=== PATIENT | female | born 1985 | race Caucasian/White ===

== ENCOUNTER 2017-10-11 16:44 | Emergency (ER) | payer BC ==
[~2017-10-11] VITALS: Ht 162.6 cm; Wt 85.0 kg
[2017-10-11 16:55] VITALS: BP 133/95; PULSE 97; RESP 18; TEMP 98.8; O2SAT 97
[2017-10-11 17:35] LABS: AUTOMATED NEUTROPHIL # 4.2 TH/MM3 (1.8-7.7); BASOPHIL % 0.6 % (0.0-2.0); EOSINOPHIL # 0.1 TH/MM3 (0-0.4); EOSINOPHIL % 0.9 % (0.0-4.0); HEMATOCRIT 39.7 % (35.0-46.0); HEMOGLOBIN 13.5 GM/DL (11.6-15.3); LYMPH % 34.2 % (9.0-44.0); LYMPHOCYTE # 2.5 TH/MM3 (1.0-4.8); MEAN CELL VOLUME 78.7 FL (80.0-100.0); MEAN CORPUSCULAR HEMOGLOBIN 26.9 PG (27.0-34.0); MEAN CORPUSCULAR HGB CONC 34.1 % (32.0-36.0); MEAN PLATELET VOLUME 8.7 FL (7.0-11.0); MONOCYTE # 0.4 TH/MM3 (0-0.9); NEUT % 58.3 % (16.0-70.0); PLATELET COUNT 237 TH/MM3 (150-450); RED BLOOD COUNT 5.04 MIL/MM3 (4.00-5.30); RED CELL DISTRIBUTION WIDTH 13.3 % (11.6-17.2); WHITE BLOOD COUNT 7.2 TH/MM3 (4.0-11.0)
[2017-10-11 17:44] LABS: BILIRUBIN, URINE NEG (NEG); BLOOD, URINE NEG (NEG); GLUCOSE,URINE NEG (NEG); KETONE, URINE NEG (NEG); MUCUS URINE FEW /lpf (OCC); NITRITE,URINE NEG (NEG); SQUAMOUS EPITHELIAL CELL URINE 1 /hpf (0-5); URINE COLOR YELLOW (YELLW/STRAW); URINE LEUKOCYTE ESTERASE NEG (NEG)
[2017-10-11 17:56] LABS: ALBUMIN 4.7 GM/DL (3.4-5.0); ALT (GPT) 37 U/L (10-53); AST (GOT) 21 U/L (15-37); BICARBONATE 25.2 MEQ/L (21.0-32.0); BLOOD UREA NITROGEN 12 MG/DL (7-18); CALCIUM 9.8 MG/DL (8.5-10.1); CHLORIDE 106 MEQ/L (98-107); CREATININE 0.85 MG/DL (0.50-1.00); GLOMERULAR FILTRATION RATE 79 ML/MIN (>89); GLUCOSE,RANDOM 86 MG/DL (74-106); SODIUM (NA) 140 MEQ/L (136-145)
[2017-10-11 17:57] LABS: ALKALINE PHOSPHATASE 86 U/L (45-117); TOTAL BILIRUBIN ADULT 0.6 MG/DL (0.2-1.0); TOTAL PROTEIN 8.5 GM/DL (6.4-8.2)
[2017-10-11] MEDS ORDERED: SODIUM CHLOR 0.9% 1000 ML INJ 1,000 ML IV SCH (18:06)
[2017-10-11] MEDS ORDERED: ONDANSETRON HCL 4 MG/2 ML VIAL IVP ONE (18:15)
[2017-10-11] MEDS ORDERED: KETOROLAC TROMETHAMINE 30 MG/ML (IVP) VIAL IVP ONE (18:15)
[2017-10-11] MEDS ORDERED: SODIUM CHLORIDE 0.9% FLUSH 10 ML FLUSH IV FLUSH PRN (18:15)
--- NOTE | 2017-10-11 18:38 | PD ---
HPI Chief Complaint: Abdominal Pain Time Seen by Provider: 17:51 Travel History International Travel<30 days: No Contact w/Intl Traveler<30days: No Traveled to known affect area: No History of Present Illness HPI 31-year-old female presents to the emergency department with complaint of left lower quadrant abdominal pain 12 days that has been constant and associated diarrhea. Reports nausea without vomiting. Denies fevers. Denies dysuria, hematochezia. Denies abnormal vaginal discharge, odor. Denies recent travel or hospitalization. Says her diarrhea goes between being watery and soft. She was seen at urgent care and was sent here for concern of diverticulitis. She has history of endometriosis removal in 2015 and takes Lupron. Denies other abdominal surgical history. her last menstrual period was December 2016 secondary to Lupron, which stopped her menses. Rates pain 01/01. Has taken Tylenol with no relief of symptoms. Pain is worse with eating. No known relieving factors. Denies radiation of pain. Denies history of kidney stones. Has history of Jean syndrome, depression, ADHD. Says she went to [facility] and they gave her pain medication and said that she was just having cramps. Primary care provider is Dr. Cortez, resident MD here at [place]. No other medical complaints. No other modifying factors or associated signs and symptoms. PFSH Past Medical History ?: Not LMP: 12/2016 ON LUPRON Social History Tobacco Use: No Allergies-Medications (Allergen,Severity, Reaction): Coded Allergies: No Known Allergies (Unverified , 10/11/17) Reported Meds & Prescriptions Reported Meds & Active Scripts Active Reported Xanax (Alprazolam) 0.5 Mg Tab 0.5 Mg PO [depo-looperon] 11.25 Mg IM Lexapro (Escitalopram Oxalate) 10 Mg Tab 10 Mg PO DAILY Adderall (Amphetamine-Dextroamphetamine) 15 Mg Tab 15 Mg PO DAILY Avoid late evening doses. Space doses at least 4 to 6 hours if more than once/day dosing. Review of Systems Except as stated in HPI: all other systems reviewed are Neg Physical Exam Narrative GENERAL: Well-nourished, well-developed female patient, in no acute distress; afebrile; nontoxic-appearing SKIN: Warm and dry. HEAD: Atraumatic. Normocephalic. EYES: Pupils equal and round. No scleral icterus. No injection or drainage. ENT: Mucosa pink and moist. Airway patent. NECK: Trachea midline. CARDIOVASCULAR: Regular rate and rhythm. No murmur appreciated. RESPIRATORY: No accessory muscle use. Clear to auscultation. Breath sounds equal bilaterally. GASTROINTESTINAL: Abdomen soft, tenderness on palpation to left lower quadrant, nondistended. Hepatic and splenic margins not palpable. Bowel sounds are active 4 quadrants. Nonrigid. No guarding. BACK: No CVA tenderness. MUSCULOSKELETAL: No obvious deformities. No clubbing. No cyanosis. No edema. NEUROLOGICAL: Awake and alert. Oriented 3. No obvious cranial nerve deficits. Motor grossly within normal limits. Normal speech. PSYCHIATRIC: Appropriate mood and affect; insight and judgment normal. Data Data Last Documented VS Vital Signs Date Time Temp Pulse Resp B/P (MAP) Pulse Ox O2 Delivery O2 Flow Rate FiO2 10/11/17 18:39 18 10/11/17 16:55 98.8 97 133/95 (108) 97 Orders Orders Complete Blood Count With Diff (10/11/17 16:58) Comprehensive Metabolic Panel (10/11/17 16:58) Urinalysis - C+S If Indicated (10/11/17 16:58) Iv Access Insert/Monitor (10/11/17 16:58) Lipase (10/11/17 16:58) Ct Abd/Pel W Iv Contrast(Rout) (10/11/17 18:06) Ondansetron Inj (Zofran Inj) (10/11/17 18:15) Sodium Chlor 0.9% 1000 Ml Inj (Ns 1000 M (10/11/17 18:06) Sodium Chloride 0.9% Flush (Ns Flush) (10/11/17 18:15) Ketorolac Inj (Toradol Inj) (10/11/17 18:15) Labs Laboratory Tests Test 10/11/17 17:13 10/11/17 17:17 Urine Color YELLOW Urine Turbidity HAZY Urine pH 6.0 Urine Specific [place] 1.021 Urine Protein TRACE mg/dL Urine Glucose (UA) NEG mg/dL Urine Ketones NEG mg/dL Urine Occult Blood NEG Urine Nitrite NEG Urine Bilirubin NEG Urine Urobilinogen 2.0 MG/DL Urine Leukocyte Esterase NEG Urine WBC 1 /hpf Urine Squamous Epithelial Cells 1 /hpf Urine Granular Casts 2 /lpf Urine Mucus FEW /lpf Microscopic Urinalysis Comment CULT NOT INDICATED White Blood Count 7.2 TH/MM3 Red Blood Count 5.04 MIL/MM3 Hemoglobin 13.5 GM/DL Hematocrit 39.7 % Mean Corpuscular Volume 78.7 FL Mean Corpuscular Hemoglobin 26.9 PG Mean Corpuscular Hemoglobin Concent 34.1 % Red Cell Distribution Width 13.3 % Platelet Count 237 TH/MM3 Mean Platelet Volume 8.7 FL Neutrophils (%) (Auto) 58.3 % Lymphocytes (%) (Auto) 34.2 % Monocytes (%) (Auto) 6.0 % Eosinophils (%) (Auto) 0.9 % Basophils (%) (Auto) 0.6 % Neutrophils # (Auto) 4.2 TH/MM3 Lymphocytes # (Auto) 2.5 TH/MM3 Monocytes # (Auto) 0.4 TH/MM3 Eosinophils # (Auto) 0.1 TH/MM3 Basophils # (Auto) 0.0 TH/MM3 CBC Comment DIFF FINAL Differential Comment Blood Urea Nitrogen 12 MG/DL Creatinine 0.85 MG/DL Random Glucose 86 MG/DL Total Protein 8.5 GM/DL Albumin 4.7 GM/DL Calcium Level 9.8 MG/DL Alkaline Phosphatase 86 U/L Aspartate Amino Transf (AST/SGOT) 21 U/L Alanine Aminotransferase (ALT/SGPT) 37 U/L Total Bilirubin 0.6 MG/DL Sodium Level 140 MEQ/L Potassium Level 3.7 MEQ/L Chloride Level 106 MEQ/L Carbon Dioxide Level 25.2 MEQ/L Anion Gap 9 MEQ/L Estimat Glomerular Filtration Rate 79 ML/MIN Lipase 68 U/L [facility] Medical Decision Making Medical Screen Exam Complete: Yes Emergency Medical Condition: Yes Medical Record Reviewed: Yes Differential Diagnosis Diverticulitis, C. difficile, diarrhea Narrative Course 31-year-old female with left lower quadrant abdominal pain and diarrhea 12 days. Patient is afebrile nontoxic pain. Denies fever, vomiting. CBC, CMP, lipase, urinalysis, UPT, CT abdomen/pelvis, IV, IV fluids, Toradol, Zofran ordered. 0: CBC, CMP unremarkable. Lipase 68. Urinalysis without signs of infection. 1899: Report given to Magdaleno Rowe PA-C at change of shift. See his note for final patient disposition. Rachael Oro Oct 11, 2017 18:38
[2017-10-11] MEDS ORDERED: LEXA10TA PO (18:39)
[2017-10-11] MEDS ORDERED: ADDE15TA PO (18:39)
[2017-10-11] MEDS ORDERED: [UNRECOGNIZED DRUG - OTHER] IM (18:39)
[2017-10-11] MEDS ORDERED: ALPR.5 PO (18:46)
[2017-10-11 19:06] VITALS: BP 119/84; PULSE 74; RESP 15; O2SAT 97
--- NOTE | 2017-10-11 19:07 | PD ---
Data Data Last Documented VS Vital Signs Date Time Temp Pulse Resp B/P (MAP) Pulse Ox O2 Delivery O2 Flow Rate FiO2 10/11/17 19:06 74 15 119/84 (96) 97 Room Air 10/11/17 16:55 98.8 Orders Orders Complete Blood Count With Diff (10/11/17 16:58) Comprehensive Metabolic Panel (10/11/17 16:58) Urinalysis - C+S If Indicated (10/11/17 16:58) Iv Access Insert/Monitor (10/11/17 16:58) Lipase (10/11/17 16:58) Ct Abd/Pel W Iv Contrast(Rout) (10/11/17 18:06) Ondansetron Inj (Zofran Inj) (10/11/17 18:15) Sodium Chlor 0.9% 1000 Ml Inj (Ns 1000 M (10/11/17 18:06) Sodium Chloride 0.9% Flush (Ns Flush) (10/11/17 18:15) Ketorolac Inj (Toradol Inj) (10/11/17 18:15) Ed Urine Pregnancytest Poc (10/11/17 19:44) Iohexol 350 Inj (Omnipaque 350 Inj) (10/11/17 20:03) Labs Laboratory Tests Test 10/11/17 17:13 10/11/17 17:17 Urine Color YELLOW Urine Turbidity HAZY Urine pH 6.0 Urine Specific [place] 1.021 Urine Protein TRACE mg/dL Urine Glucose (UA) NEG mg/dL Urine Ketones NEG mg/dL Urine Occult Blood NEG Urine Nitrite NEG Urine Bilirubin NEG Urine Urobilinogen 2.0 MG/DL Urine Leukocyte Esterase NEG Urine WBC 1 /hpf Urine Squamous Epithelial Cells 1 /hpf Urine Granular Casts 2 /lpf Urine Mucus FEW /lpf Microscopic Urinalysis Comment CULT NOT INDICATED White Blood Count 7.2 TH/MM3 Red Blood Count 5.04 MIL/MM3 Hemoglobin 13.5 GM/DL Hematocrit 39.7 % Mean Corpuscular Volume 78.7 FL Mean Corpuscular Hemoglobin 26.9 PG Mean Corpuscular Hemoglobin Concent 34.1 % Red Cell Distribution Width 13.3 % Platelet Count 237 TH/MM3 Mean Platelet Volume 8.7 FL Neutrophils (%) (Auto) 58.3 % Lymphocytes (%) (Auto) 34.2 % Monocytes (%) (Auto) 6.0 % Eosinophils (%) (Auto) 0.9 % Basophils (%) (Auto) 0.6 % Neutrophils # (Auto) 4.2 TH/MM3 Lymphocytes # (Auto) 2.5 TH/MM3 Monocytes # (Auto) 0.4 TH/MM3 Eosinophils # (Auto) 0.1 TH/MM3 Basophils # (Auto) 0.0 TH/MM3 CBC Comment DIFF FINAL Differential Comment Blood Urea Nitrogen 12 MG/DL Creatinine 0.85 MG/DL Random Glucose 86 MG/DL Total Protein 8.5 GM/DL Albumin 4.7 GM/DL Calcium Level 9.8 MG/DL Alkaline Phosphatase 86 U/L Aspartate Amino Transf (AST/SGOT) 21 U/L Alanine Aminotransferase (ALT/SGPT) 37 U/L Total Bilirubin 0.6 MG/DL Sodium Level 140 MEQ/L Potassium Level 3.7 MEQ/L Chloride Level 106 MEQ/L Carbon Dioxide Level 25.2 MEQ/L Anion Gap 9 MEQ/L Estimat Glomerular Filtration Rate 79 ML/MIN Lipase 68 U/L [facility] Medical Record Reviewed: Yes Supervised Visit with BENNETT: Yes Narrative Course CBC & BMP Diagram 10/11/17 17:17 Total Protein 8.5 H, Albumin 4.7, Calcium Level 9.8, Alkaline Phosphatase 86, Aspartate Amino Transf (AST/SGOT) 21, Alanine Aminotransferase (ALT/SGPT) 37, Total Bilirubin 0.6 Lipase is normal Urinalysis is normal Urine is negative Diagnosis Primary Impression: Nausea Additional Impressions: Diarrhea Qualified Codes: R19.7 - Diarrhea, unspecified Abdominal pain Qualified Codes: R10.9 - Unspecified abdominal pain Referrals: Primary Care Physician call for appointment Med/Other Pt SpecificInfo: Prescription(s) given Scripts Ondansetron Odt (Zofran Odt) 4 Mg Tab 4 MG SL Q8HR Y for Nausea/Vomiting, #10 TAB 0 Refills Prov: Jonathan Holland MD 10/11/17 Disposition: 01 DISCHARGE HOME Condition: Stable Jonathan Holland MD Oct 11, 2017 19:07
[2017-10-11] MEDS ORDERED: IOHEXOL 350 MG/ML 10 ML VIAL (for RAD DIAG) IVCONTRAST ONE (20:03)
--- NOTE | 2017-10-11 20:17 | RADRPT ---
EXAM DATE/TIME: 10/11/2017 19:59 [facility] COMPARISON: No previous studies available for comparison. INDICATIONS : Left lower quadrant abdomen pain with diarrhea. IV CONTRAST: 100 cc Omnipaque 350 (iohexol) IV ORAL CONTRAST: No oral contrast ingested. RADIATION DOSE: 12.79 CTDIvol (mGy) MEDICAL HISTORY : Diverticulitis. SURGICAL HISTORY : None. ENCOUNTER: Initial ACUITY: 2 weeks PAIN SCALE: 6/10 LOCATION: Left lower quadrant abdomen TECHNIQUE: Volumetric scanning of the abdomen and pelvis was performed. Using automated exposure control and ad justment of the mA and/or kV according to patient size, radiation dose was kept as low as reasonably achievable to obtain optimal diagnostic quality images. DICOM format image data is available electro nically for review and comparison. FINDINGS: LOWER LUNGS: The visualized lower lungs are clear. LIVER: Homogeneous density without lesion. There is no dilation of the biliary tree. No calcified gallston es. SPLEEN: Normal size without lesion. PANCREAS: Within normal limits. KIDNEYS: Normal in size and shape. There is no mass, stone or hydronephrosis. ADRENAL GLANDS: Within normal limits. VASCULAR: There is no aortic aneurysm. BOWEL/MESENTERY: The stomach, small bowel, and colon demonstrate no acute abnormality. There is no free intraperitone al air or fluid. ABDOMINAL WALL: Within normal limits. RETROPERITONEUM: There is no lymphadenopathy. BLADDER: No wall thickening or mass. REPRODUCTIVE: Within normal limits. INGUINAL: There is no lymphadenopathy or hernia. MUSCULOSKELETAL: Within normal limits for patient age. CONCLUSION: No acute CT findings in the abdomen or pelvis. Olivier Wallace MD on October 11, 2017 at 20:10 Board Certified Radiologist. This report was verified electronically.
[2017-10-11] MEDS ORDERED: ZOFR4TAB3 SL (20:32)
[2017-10-15] MEDS ORDERED: LUPR11.22 IM (10:50)
== END 2017-10-11 23:24 | disposition home or self-care (01) ==
LOC: NEPD 16:44
DX: R11.0 Nausea (principal); R19.7 Diarrhea, unspecified; R10.32 Left lower quadrant pain
CPT/HCPCS: 74177; 80053; 81001; 83690; 84703; 85025; 96374; 96375; 99284; J1885; J2405; J7030; Q9967

== ENCOUNTER 2017-10-22 16:43 | Emergency (ER) | payer BC ==
[~2017-10-22] VITALS: Ht 162.6 cm; Wt 82.3 kg
[~2017-10-22 16:43] MED LIST: ADDE15TA PO; ALPR.5 PO; LEXA10TA PO; LUPR11.22 IM; ZOFR4TAB3 SL
[2017-10-22 16:48] VITALS: BP 126/78; PULSE 83; RESP 18; TEMP 98.1; O2SAT 97
[2017-10-22 18:20] LABS: AMORPHOUS SEDIMENT, URINE RARE; BILIRUBIN, URINE NEG (NEG); BLOOD, URINE NEG (NEG); GLUCOSE,URINE NEG (NEG); KETONE, URINE 10 mg/dL (NEG); MUCUS URINE MANY /lpf (OCC); NITRITE,URINE NEG (NEG); SQUAMOUS EPITHELIAL CELL URINE 6 /hpf (0-5); URINE COLOR YELLOW (YELLW/STRAW); URINE LEUKOCYTE ESTERASE TRACE (NEG)
[2017-10-22 18:31] LABS: AUTOMATED NEUTROPHIL # 5.1 TH/MM3 (1.8-7.7); BASOPHIL # 0.1 TH/MM3 (0-0.2); BASOPHIL % 0.6 % (0.0-2.0); EOSINOPHIL # 0.1 TH/MM3 (0-0.4); EOSINOPHIL % 0.7 % (0.0-4.0); HEMATOCRIT 37.9 % (35.0-46.0); HEMOGLOBIN 13.3 GM/DL (11.6-15.3); LYMPH % 30.6 % (9.0-44.0); LYMPHOCYTE # 2.5 TH/MM3 (1.0-4.8); MEAN CELL VOLUME 78.3 FL (80.0-100.0); MEAN CORPUSCULAR HEMOGLOBIN 27.5 PG (27.0-34.0); MEAN CORPUSCULAR HGB CONC 35.1 % (32.0-36.0); MEAN PLATELET VOLUME 9.1 FL (7.0-11.0); MONO % 6.3 % (0.0-8.0); MONOCYTE # 0.5 TH/MM3 (0-0.9); NEUT % 61.8 % (16.0-70.0); PLATELET COUNT 265 TH/MM3 (150-450); RED BLOOD COUNT 4.84 MIL/MM3 (4.00-5.30); RED CELL DISTRIBUTION WIDTH 13.5 % (11.6-17.2); WHITE BLOOD COUNT 8.3 TH/MM3 (4.0-11.0)
[2017-10-22 18:39] LABS: ALBUMIN 4.7 GM/DL (3.4-5.0); ALT (GPT) 27 U/L (10-53); AST (GOT) 15 U/L (15-37); BICARBONATE 24.6 MEQ/L (21.0-32.0); BLOOD UREA NITROGEN 12 MG/DL (7-18); CALCIUM 9.5 MG/DL (8.5-10.1); CHLORIDE 107 MEQ/L (98-107); CREATININE 0.81 MG/DL (0.50-1.00); GLOMERULAR FILTRATION RATE 84 ML/MIN (>89); GLUCOSE,RANDOM 93 MG/DL (74-106); SODIUM (NA) 140 MEQ/L (136-145)
[2017-10-22 18:41] LABS: ALKALINE PHOSPHATASE 84 U/L (45-117); TOTAL BILIRUBIN ADULT 0.4 MG/DL (0.2-1.0); TOTAL PROTEIN 8.2 GM/DL (6.4-8.2)
[2017-10-22] MEDS ORDERED: DICYCLOMINE HCL 20 MG/2 ML VIAL IM ONE (19:30)
--- NOTE | 2017-10-22 19:31 | PD ---
HPI Chief Complaint: Abdominal Pain Time Seen by Provider: 19:19 Travel History International Travel<30 days: No Contact w/Intl Traveler<30days: No Traveled to known affect area: No History of Present Illness HPI 31-year-old female here for evaluation of abdominal pain, weight loss, near syncopal episode that occurred today. Patient reports that she was seen by her primary care physician at the [facility] today here at [place], and when she was leaving to get into her car she began to see spots and felt as though she was going to pass out. She states that her abdominal pain started on September 30 and has been on her left lower abdomen and radiates to her left flank. She had a laparoscopic procedure for endometriosis in the past, no other abdominal surgeries. Pain is described as sharp, constant, moderate, intermittently worse at times. She denies dysuria or urinary frequency. No vaginal bleeding or discharge. She is sexually active with one partner and believe she is in a monogamous relationship. She was seen in the emergency department on 10/11/17 with similar complaints and had a CT abdomen pelvis performed that showed no acute intra-abdominal pathology. [facility] Past Medical History ADHD: Yes Anxiety: Yes Reproductive: Yes (endometriosis) ?: Not Past Surgical History Tonsillectomy: Yes Other Surgery: Yes (endometriosis removal ) Social History Alcohol Use: Yes (rarely) Tobacco Use: No Substance Use: No Allergies-Medications (Allergen,Severity, Reaction): Coded Allergies: No Known Allergies (Unverified , 10/11/17) Reported Meds & Prescriptions Reported Meds & Active Scripts Active Zofran Odt (Ondansetron Odt) 4 Mg Tab 4 Mg SL Q8HR PRN Reported Lupron Depot Inj Kit (Leuprolide (3 Month) Inj Kit) 11.25 Mg Kit 11.25 Mg IM DIRECTED Xanax (Alprazolam) 0.5 Mg Tab 0.5 Mg PO Lexapro (Escitalopram Oxalate) 10 Mg Tab 10 Mg PO DAILY Adderall (Amphetamine-Dextroamphetamine) 15 Mg Tab 15 Mg PO DAILY Avoid late evening doses. Space doses at least 4 to 6 hours if more than once/day dosing. Review of Systems Except as stated in HPI: all other systems reviewed are Neg Physical Exam Narrative GENERAL: Well-developed, well-nourished, comfortable, no apparent distress. SKIN: Focused skin assessment warm/dry. No rash. HEAD: Atraumatic. Normocephalic. EYES: Pupils equal and round. No scleral icterus. No injection or drainage. ENT: No nasal bleeding or discharge. Mucous membranes pink and moist. NECK: Trachea midline. No JVD. CARDIOVASCULAR: Regular rate and rhythm. No murmur appreciated. RESPIRATORY: No accessory muscle use. Clear to auscultation. Breath sounds equal bilaterally. GASTROINTESTINAL: Abdomen soft, nondistended. Mild left lower quadrant tenderness without peritoneal signs. Rest of abdomen is soft and nontender. No hernias. Normal bowel sounds. PRACTICE NURSE: Exam performed in the presence of a female nurse. Normal external genitalia. Scant/physiologic/[id number] vaginal discharge. Normal- appearing cervix. No CMT. No adnexal masses or tenderness. MUSCULOSKELETAL: No obvious deformities. No clubbing. No cyanosis. No edema. NEUROLOGICAL: Awake and alert. No obvious cranial nerve deficits. Motor grossly within normal limits. Normal speech. PSYCHIATRIC: Appropriate mood and affect; insight and judgment normal. Data Data Last Documented VS Vital Signs Date Time Temp Pulse Resp B/P (MAP) Pulse Ox O2 Delivery O2 Flow Rate FiO2 10/22/17 16:48 98.1 83 18 126/78 (94) 97 Orders Orders Complete Blood Count With Diff (10/22/17 16:51) Comprehensive Metabolic Panel (10/22/17 16:51) Lipase (10/22/17 16:51) Urinalysis - C+S If Indicated (10/22/17 16:51) Ed Urine Pregnancytest Poc (10/22/17 16:51) Dicyclomine Inj (Bentyl Inj) (10/22/17 19:30) Gc And Chlamydia Pcr (10/22/17 19:25) Wet Prep Profile (10/22/17 19:25) Electrocardiogram (10/22/17 ) Us Pelvis Comp W Dop Transvag (10/22/17 ) Labs Laboratory Tests Test 10/22/17 15:27 10/22/17 18:03 10/22/17 20:35 Urine Color YELLOW Urine Turbidity HAZY Urine pH 6.0 Urine Specific [place] 1.025 Urine Protein TRACE mg/dL Urine Glucose (UA) NEG mg/dL Urine Ketones 10 mg/dL Urine Occult Blood NEG Urine Nitrite NEG Urine Bilirubin NEG Urine Urobilinogen 2.0 MG/DL Urine Leukocyte Esterase TRACE Urine RBC 2 /hpf Urine WBC 1 /hpf Urine Squamous Epithelial Cells 6 /hpf Urine Amorphous Sediment RARE Urine Mucus MANY /lpf Microscopic Urinalysis Comment CULT NOT INDICATED White Blood Count 8.3 TH/MM3 Red Blood Count 4.84 MIL/MM3 Hemoglobin 13.3 GM/DL Hematocrit 37.9 % Mean Corpuscular Volume 78.3 FL Mean Corpuscular Hemoglobin 27.5 PG Mean Corpuscular Hemoglobin Concent 35.1 % Red Cell Distribution Width 13.5 % Platelet Count 265 TH/MM3 Mean Platelet Volume 9.1 FL Neutrophils (%) (Auto) 61.8 % Lymphocytes (%) (Auto) 30.6 % Monocytes (%) (Auto) 6.3 % Eosinophils (%) (Auto) 0.7 % Basophils (%) (Auto) 0.6 % Neutrophils # (Auto) 5.1 TH/MM3 Lymphocytes # (Auto) 2.5 TH/MM3 Monocytes # (Auto) 0.5 TH/MM3 Eosinophils # (Auto) 0.1 TH/MM3 Basophils # (Auto) 0.1 TH/MM3 CBC Comment DIFF FINAL Differential Comment Blood Urea Nitrogen 12 MG/DL Creatinine 0.81 MG/DL Random Glucose 93 MG/DL Total Protein 8.2 GM/DL Albumin 4.7 GM/DL Calcium Level 9.5 MG/DL Alkaline Phosphatase 84 U/L Aspartate Amino Transf (AST/SGOT) 15 U/L Alanine Aminotransferase (ALT/SGPT) 27 U/L Total Bilirubin 0.4 MG/DL Sodium Level 140 MEQ/L Potassium Level 3.8 MEQ/L Chloride Level 107 MEQ/L Carbon Dioxide Level 24.6 MEQ/L Anion Gap 8 MEQ/L Estimat Glomerular Filtration Rate 84 ML/MIN Lipase 66 U/L Clue Cells (Wet Prep) NONE SEEN Vaginal Trichomonas (Wet Prep) NONE SEEN Vaginal Yeast (Wet Prep) NONE SEEN MDM Medical Decision Making Medical Screen Exam Complete: Yes Emergency Medical Condition: Yes Medical Record Reviewed: Yes Interpretation(s) EKG: Sinus, rate 60, normal axis, normal intervals, no acute ischemic abnormality. Differential Diagnosis Ovarian cyst, ovarian torsion, PID, BV, UTI, cystitis, pyelonephritis, ureterolithiasis Narrative Course Vital signs reviewed and are within normal limits. CBC is unremarkable. CMP is unremarkable. Lipase is 66. UA is not suggestive of UTI. Wet prep is negative. Pelvic ultrasound: CONCLUSION: 1. Left ovary not visualized. Small follicular cysts right ovary with positive blood flow. 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 Patient was made aware of all findings. She is resting comfortably. Her abdominal exam shows no peritoneal signs. She had a normal CT abdomen pelvis about a week ago. I do not believe that repeat CT would be useful at this time as I do not believe that there is an acute intra-abdominal/surgical process. Patient was provided Bentyl patient. At this point I believe she is stable for discharge home with outpatient follow-up with her primary care physician as well as a manager of pharmacy this week. She reports that she is scheduled for colonoscopy in November. She was advised on when to return to the emergency department. She verbalizes understanding and agreement with plan. Diagnosis Primary Impression: Abdominal pain Qualified Codes: R10.32 - Left lower quadrant pain Referrals: Ditch Inspector 3 days Primary Care Physician 3 days Additional Instructions: Follow-up with your primary care physician this week. Follow-up with your manager of pharmacy as scheduled. Return to the emergency department for worsening symptoms or any other concerns. Scripts Dicyclomine (Bentyl) 10 Mg Cap 10 MG PO TID Y for Bowel Management, #30 CAP 0 Refills Prov: Jordan Bocanegra MD 10/22/17 Disposition: 01 DISCHARGE HOME Condition: Stable Jordan Bocanegra MD Oct 22, 2017 19:31
--- NOTE | 2017-10-22 20:57 | RADRPT ---
EXAM DATE/TIME: 10/22/2017 20:14 [facility] COMPARISON: No previous studies available for comparison. INDICATIONS : Left pelvic pain. MEDICAL HISTORY : Endometriosis. SURGICAL HISTORY : Endometriosis surgery. ENCOUNTER: Initial ACUITY: 3 weeks PAIN SCORE: 7/10 LOCATION: Bilateral pelvis MEASUREMENTS: UTERUS: 4.9 x 4.2 x 1.7 cm ENDOMETRIAL STRIPE: RIGHT OVARY: 2.4 x 3.0 x 1.2 cm LEFT OVARY: Not visualized. FINDINGS: Left ovary is not visualized. Small follicular cyst right ovary with positive blood flow. Probable bi cornuate uterus. No endometrial stripe thickening. No free fluid. CONCLUSION: 1. Left ovary not visualized. Small follicular cysts right ovary with positive blood flow. Probable b icornuate uterus. Magdaleno Augustin MD on October 22, 2017 at 20:54 Board Certified Radiologist. This report was verified electronically.
[2017-10-22] MEDS ORDERED: DICY10 PO (21:50)
--- NOTE | 2017-10-23 07:53 | EKG ---
Date Performed: 10/22/2017 Time Performed: 21:44:17 PTAGE: 31 years EKG: Sinus rhythm NORMAL ECG NO PREVIOUS TRACING DOCTOR: Kun Woody Interpretating Date/Time 10/23/2017 07:52:05
== END 2017-10-22 21:55 | disposition home or self-care (01) ==
LOC: NEPD 16:43
DX: R10.32 Left lower quadrant pain (principal); F90.9 Attention-deficit hyperactivity disorder, unspecified type; Z79.899 Other long term (current) drug therapy
CPT/HCPCS: 76830; 76856; 80053; 81001; 83690; 84703; 85025; 87210; 87491; 87591; 93005; 93975; 96372; 99285; J0500